=== PATIENT | male | born 1980 | race Caucasian/White ===

== ENCOUNTER 2020-08-11 15:17 | Emergency (ER) | payer OTHER, SELFPAY ==
[2020-08-11 15:34] VITALS: BP 155/85; PULSE 82; RESP 18; TEMP 36.9; O2SAT 98; BMI 27.8
--- NOTE | 2020-08-11 15:39 | DI.CT.S_ITS ---
PROCEDURE: CT HEAD/BRAIN WO CON INDICATIONS: injury TECHNIQUE: Noncontrast 4.5 mm thick angled axial sections acquired from the foramen magnum to the vertex, with coronal and sagittal reformats. For radiation dose reduction, the following was used: automated exposure control, adjustment of mA and/or kV according to patient size. COMPARISON: [facility], CT, CT CERVICAL SPINE WO CON, 08/11/2020, 16:23. FINDINGS: Image quality: Excellent. CSF spaces: Basal cisterns are patent. No extra-axial fluid collections. Ventricles are normal in size and shape. Brain: No midline shift. No intracranial masses or hemorrhage. Vincent-white matter interface is normal. Skull and face: Calvarium and visualized facial bones are intact, without suspicious lesions. Soft tissue left frontal laceration is noted. Sinuses: Visualized sinuses and mastoids are clear. IMPRESSION: 1. No acute intracranial process. 2. Soft tissue left frontal laceration. Dictated by: Kasie Franklin M.D. on 08/11/2020 at 16:44 Approved by: Kasie Franklin M.D. on 08/11/2020 at 16:45
--- NOTE | 2020-08-11 15:39 | DI.CT.S_ITS ---
PROCEDURE: CT CERVICAL SPINE WO CON INDICATIONS: injury TECHNIQUE: Noncontrast 3 mm thick sections acquired from the skull base to the T4 level. Sagittal and coronal reformats were then constructed. For radiation dose reduction, the following was used: automated exposure control, adjustment of mA and/or kV according to patient size. COMPARISON: None. FINDINGS: Image quality: Excellent. Bones: No fractures or dislocations. Visualized superior ribs are intact. Cervical straightening is present. Anterior fusion is present at C6-7. Soft tissues: Prevertebral soft tissues are normal in thickness. No paravertebral hematomas. No apical pneumothoraces. IMPRESSION: No visualized fracture. Dictated by: Kasie Franklin M.D. on 08/11/2020 at 16:45 Approved by: Kasie Franklin M.D. on 08/11/2020 at 16:48
--- NOTE | 2020-08-11 18:33 | ED_ITS ---
HPI - Head Injury General Chief complaint: Head Injury Stated complaint: Head Injury Needing Stitches Time Seen by Provider: 08/11/20 18:15 Source: patient Mode of arrival: Ambulatory Limitations: no limitations History of Present Illness HPI Narrative: 40-year-old male nonsmoker with noncontributory medical history presents with his in the chief complaint of an injury to his forehead just prior to arrival. 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 He has been nauseated but denies any vomiting. He takes no blood thinners and denies alcohol or street drugs. He did develop some neck pain as a consequence of the fall. MD Complaint: head injury, head pain and other Onset (ago): minute(s) Arrival Conditions: C-spine immobilization present Mechanism of Injury: sports related injury Place: outdoors Loss of Consciousness: yes Location of injury: frontal Severity: moderate Quality: aching Radiation: none Other Injuries: neck Related Data Previous Rx's Medication Instructions Recorded cephalexin 500 mg PO Q6H 7 Days #28 cap 08/11/20 ondansetron 4 mg PO TID-QID PRN #10 tab 08/11/20 Allergies Allergy/AdvReac Type Severity Reaction Status Date / Time No Known Drug Allergies Allergy Verified 08/11/20 15:38 Review of Systems Constitutional Constitutional: Denies chills, Denies fatigue, Denies fever(s), Denies frequent falls, Reports headache(s), Denies lethargy and Denies weakness Eyes Eyes: Denies change in vision, Denies eye discharge, Denies irritation and Denies loss of vision ENT Ears, Nose, Mouth, and Throat: Denies change in voice, Denies dizziness, Reports headache(s), Denies neck pain, Denies sore throat and Denies throat swelling Cardiovascular Cardiovascular: Denies chest pain, Denies irregular heart rhythm, Denies lightheadedness, Denies palpitations, Denies dyspnea, Denies dyspnea on exertion and Denies orthopnea Respiratory Respiratory: Denies cough, Denies dyspnea, Denies dyspnea on exertion and Denies wheezing Gastrointestinal Gastrointestinal: Denies abdominal pain, Denies change in bowel habits, Denies diarrhea, Denies nausea and Denies vomiting Musculoskeletal Musculoskeletal: Denies neck pain and Denies numbness Integumentary/Breasts Skin/Breast: Denies pruritus, Denies erythema, Denies rash and Reports wounds Neurologic Neurologic: Denies behavioral changes, Denies confusion, Denies dizziness, Denies frequent falls, Reports headache(s), Denies loss of vision, Denies numbness and Denies weakness Psychiatric Psychiatric: Denies anxiety, Denies behavioral changes, Denies confusion, Denies depression, Denies homicidal ideation and Denies suicidal ideation Endocrine Endocrine: Denies fatigue, Denies flushing and Denies palpitations Hematologic/Lymphatic Hematologic/Lymphatic: Denies easy bruising Allergic/Immunologic Allergic/Immunologic: Denies urticaria, Denies throat swelling and Denies wheezing Patient History Social History Smoking Status: Never smoker Smoking Status: Never smoker alcohol intake frequency: 3 or more drinks per day Substance Use Type: does not use Exam Narrative Exam Narrative: GENERAL: [40] year old patient appears stated age. Well- developed patient, in mild distress. GCS 15 HEAD: 3 cm irregular laceration above left eyebrow with minimal bleeding EYES: Pupils equal round and reactive. Extraocular motions intact. No scleral icterus. No injection or drainage. ENT: Nose without bleeding, purulent drainage. Throat without erythema, tonsillar hypertrophy or exudate. Airway patent. NECK: Trachea midline. Minimal neck pain, no step-off or crepitance CARDIOVASCULAR: Regular rate and rhythm without murmurs, gallops, or rubs. RESPIRATORY: Clear to auscultation. Breath sounds equal bilaterally. No wheezes, rales, or rhonchi. GASTROINTESTINAL: Abdomen soft, non-tender, nondistended. EXTREMITIES: No edema or joint tenderness. BACK: Nontender without deformity or crepitance. No flank tenderness. NEURO: AOx3. SKIN: No rash or erythema of visible areas Initial Vital Signs Initial Vital Signs: Vital Signs Temperature 98.5 F 08/11/20 15:34 Pulse Rate 82 08/11/20 15:34 Respiratory Rate 18 08/11/20 15:34 Blood Pressure 155/85 H 08/11/20 15:34 Pulse Oximetry 98 08/11/20 15:34 Procedures Laceration Repair Laceration 1: Site: face Side (If applicable): left Size (cm): 3 Description: flap and irregular Depth: involves muscle layer Local Anesthetic: lidocaine 1% and with epi Amount of anesthesia used (mL): 5 Pre-repair: wound explored, irrigated extensively and deep structures intact Skin layer closed with: nylon Size (cm): 6-0 Number of sutures: 7 Technique: simple, interrupted Subcutaneous layer closed with: vicryl Size: 5-0 Number of sutures: 3 Technique: simple, interrupted Course Orders Ordered: Discontinued Medications Bacitracin (Bacitracin Oint 0.9 Gm Pckt) 1 applic TOP NOW ONE Stop: 08/11/20 19:15 Last Admin: 08/11/20 19:17 Dose: 1 applic Documented by: JANELLE Diphtheria/Tetanus/Acell Pertussis (Tet,Diph,Pertuss(Acell),Vac/Pf 0.5 Ml Syringe) 0.5 ml IM .ONCE ONE Stop: 08/11/20 15:41 Last Admin: 08/11/20 18:55 Dose: 0.5 ml Documented by: CTRNIXON Lidocaine/Epinephrine (Lidocaine 1% W/Epi) 1 ml SUBCUT NOW ONE Stop: 08/11/20 18:35 Last Admin: 08/11/20 18:55 Dose: 1 ml Documented by: [email or web address] Vital Signs Vital signs: Vital Signs - 8 hr 08/11/20 19:21 Pulse Rate 72 Respiratory Rate 14 Blood Pressure 142/81 H Pulse Oximetry 99 MDM - Head Injury Imaging Data CT scan - head: Radiologist's Impression: Chart Viewer Diagnostics DATE TYPE STATUS REF RANGE/AUTHOR Hx 08/11/20 15:39 Kasie Franklin 08/11/20 15:39 Kasie Franklin Nathan A 40, M104/11/1979 [facility], [facility] 182.88cm 92.986kg BMI: 27.8kg/m? Head Injury Search Chart No Data to Display ONSET 08/11/20 19:21 Damien Sweet 40 M [address] [id number] Scan ReportSigned Patient: Damien Sweet AMR#: [id number]: 1980Acct:[id number]/Sex: 40 / MDate of Service: 08/11/20Loc: EDAccession Number: [id number] Procedure: CT head/brain wo con Ordering Provider: Edel Anthony D.O. PROCEDURE: CT HEAD/BRAIN WO CON INDICATIONS: injury TECHNIQUE: Noncontrast 4.5 mm thick angled axial sections acquired from the foramen magnum to the vertex, with coronal and sagittal reformats. For radiation dose reduction, the following was used: automated exposure control, adjustment of mA and/or kV according to patient size. COMPARISON: [facility], CT, CT CERVICAL SPINE WO CON, 08/11/2020, 16:23. FINDINGS: Image quality: Excellent. CSF spaces: Basal cisterns are patent. No extra-axial fluid collections. Ventricles are normal in size and shape. Brain: No midline shift. No intracranial masses or hemorrhage. Vincent-white matter interface is normal. Skull and face: Calvarium and visualized facial bones are intact, without suspicious lesions. Soft tissue left frontal laceration is noted. Sinuses: Visualized sinuses and mastoids are clear. IMPRESSION: 1. No acute intracranial process. 2. Soft tissue left frontal laceration. Dictated by: Kasie Franklin M.D. on 08/11/2020 at 16:44 Approved by: Kasie Franklin M.D. on 08/11/2020 at 16:45 CT - cervical spine: Radiologist's Impression: cedure: CT cervical spine wo con Ordering Provider: Edel Anthony D.O. PROCEDURE: CT CERVICAL SPINE WO CON INDICATIONS: injury TECHNIQUE: Noncontrast 3 mm thick sections acquired from the skull base to the T4 level. Sagittal and coronal reformats were then constructed. For radiation dose reduction, the following was used: automated exposure control, adjustment of mA and/or kV according to patient size. COMPARISON: None. FINDINGS: Image quality: Excellent. Bones: No fractures or dislocations. Visualized superior ribs are intact. Cervical straightening is present. Anterior fusion is present at C6-7. Soft tissues: Prevertebral soft tissues are normal in thickness. No paravertebral hematomas. No apical pneumothoraces. IMPRESSION: No visualized fracture. Dictated by: Kasie Franklin M.D. on 08/11/2020 at 16:45 Approved by: Kasie Franklin M.D. on 08/11/2020 at 16:48 Discharge Plan Departure Patient Disposition: Home Clinical Impression: Closed head injury Qualifiers: Encounter type: initial encounter Qualified Code(s): S09.90XA - Unspecified injury of head, initial encounter Concussion without loss of consciousness Qualifiers: Encounter type: initial encounter Qualified Code(s): S06.0X0A - Concussion without loss of consciousness, initial encounter Forehead laceration Qualifiers: Encounter type: initial encounter Qualified Code(s): S01.81XA - Laceration without foreign body of other part of head, initial encounter Instructions: Concussion, DI for Laceration Repair Activity Restrictions/Additional Instructions: *You have been diagnosed with [head injury with concussion and laceration. CT scans are very reassuring and there is no evidence of fracture or bleeding.] *What to do: *Please continue to take your regular medications as directed. [ ] New medication prescriptions sent to your pharmacy: [ ] [x ] New medication written as a paper prescription [ ] No new medications given * Please keep the wound clean and dry to the best of your ability. Please monitor for signs of infection such as redness to the skin or increasing pain. Have the sutures removed by your doctor in about 7 days. If you are unable to get into your doctor, we would be happy to remove the sutures in that same timeframe. *If you do not have a primary care provider please contact the [facility] Resource line at [phone]. They will ask some questions about your medical history and help get you set up with a doctor in the community. *Return to Emergency Department if you should have any new, worsening or co ncerning symptoms, such as [fever greater than 101 F, shaking chills, worsening pain, persistent vomiting or other bothersome symptoms] Prescriptions: New cephalexin 500 mg capsule 500 mg PO Q6H 7 Days Qty: 28 RF: 0 ondansetron 4 mg tablet,disintegrating 4 mg PO TID-QID PRN (Reason: nausea and vomiting) Qty: 10 RF: 0
[2020-08-11] MEDS: TET,DIPH,PERTUSS(ACELL),VAC/PF 0.5 ML SYRINGE IM (18:55)
[2020-08-11] MEDS: LIDOCAINE 1% W/EPI 1 ML SUBCUT (18:55)
[2020-08-11] MEDS: BACITRACIN OINT 0.9 GM PCKT 1 APPLIC TOP (19:17)
[2020-08-11 19:21] VITALS: BP 142/81; PULSE 72; RESP 14; O2SAT 99
== END 2020-08-11 19:23 | disposition home or self-care (01) ==
PROVIDERS: Emergency Provider Emergency Medicine
DX: S01.81XA Laceration without foreign body of other part of head, initial encounter (principal); S06.0X0A Concussion without loss of consciousness, initial encounter; W22.8XXA Striking against or struck by other objects, initial encounter; Z23 Encounter for immunization
CPT/HCPCS: 13132; 70450; 72125; 90471; 99284; 90715